=== PATIENT | female | born 1965 | race Caucasian/White ===

== ENCOUNTER → 2025-10-16 10:01 | Outpatient (CLI) | payer OTHER, SELFPAY ==
--- NOTE | 2025-10-16 10:09 | DI.RAD.S_ITS ---
PROCEDURE: XR HIP W PEL IF DONE BILAT 2V INDICATIONS: PAIN TECHNIQUE: AP pelvis with lateral view(s) of the bilateral hip(s). COMPARISON: None. FINDINGS: Bones: No fractures or dislocations. Pelvic ring appears intact. No suspicious bony lesions. Mild degenerative arthrosis of both hips. Soft tissues: The visualized bowel gas pattern is normal. No suspicious soft tissue calcifications. 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 IMPRESSION: No acute bony abnormality. Mild degenerative arthrosis of both hips. 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 Dictated by: Figueroa Santizo M.D. on 10/16/2025 at 14:13 Approved by: Figueroa Santizo M.D. on 10/16/2025 at 14:14
--- NOTE | 2025-10-16 10:09 | DI.RAD.S_ITS ---
PROCEDURE: XR LUMBAR SPINE 2-3V INDICATIONS: PAIN TECHNIQUE: 2 views of the lumbar spine were acquired. COMPARISON: None. FINDINGS: Bones: 5 [id number] vertebrae are present. Lumbar levoscoliosis centered at L1. Multilevel disc space narrowing with advanced facet arthrosis.. No vertebral body compression fractures. No suspicious bony lesions. Soft tissues: Overlying bowel gas pattern is normal. No suspicious soft tissue calcifications. IMPRESSION: Inferior thoracic to lumbar levoscoliosis with multilevel advanced spondylosis and facet arthrosis. No acute compression deformity. Dictated by: Figueroa Santizo M.D. on 10/16/2025 at 14:14 Approved by: Figueroa Santizo M.D. on 10/16/2025 at 14:18
--- NOTE | 2025-10-16 10:09 | DI.RAD.S_ITS ---
PROCEDURE: XR HAND LT 2V INDICATIONS: PAIN TECHNIQUE: 3 views of the hand(s) acquired. COMPARISON: None. FINDINGS: Bones: No fractures or dislocations. Carpal bones are normally aligned. No suspicious bony lesions. Soft tissues: No suspicious soft tissue calcifications. IMPRESSION: No acute bony abnormality. Dictated by: Figueroa Santizo M.D. on 10/16/2025 at 14:18 Approved by: Figueroa Santizo M.D. on 10/16/2025 at 14:20
== END ==
LOC: RAD 10:06
PROVIDERS: PCP Family Medicine; Referring Provider Internal Medicine Cardiovascular Disease; Visit Provider Internal Medicine Cardiovascular Disease
DX: M47.816 Spondylosis without myelopathy or radiculopathy, lumbar region (principal); M41.9 Scoliosis, unspecified; M16.0 Bilateral primary osteoarthritis of hip; M65.852 Other synovitis and tenosynovitis, left thigh; M54.50 Low back pain, unspecified; M25.549 Pain in joints of unspecified hand; M25.559 Pain in unspecified hip
CPT/HCPCS: 72100; 73120; 73521